=== PATIENT | male | born 1950 | race Two or more races ===

== ENCOUNTER → 2021-04-02 | Outpatient (CLI) | payer OTHER ==
[2021-04-02 10:22] LABS: Basophils # (auto) 0 10 ^3/uL (0-0.2); Basophils % (auto) 0.7 % (0.0-2.0); Eosinophils # (auto) 0.1 10 ^3/uL (0-0.8); Eosinophils % (auto) 2.2 % (0.0-7.0); Hematocrit 42.7 % (41.0-53.0); Hemoglobin 14.5 g/dL (13.5-17.5); Lymphocytes # (auto) 1.7 10 ^3/uL (0.4-5.4); Lymphocytes % (auto) 35.4 % (10.0-50.0); Mean Corpuscular Hemoglobin 32.4 pg (28.0-32.0); Mean Corpuscular Hgb Conc. 33.9 g/dL (32.0-36.0); Mean Corpuscular Volume 95.4 fL (80.0-100.0); Monocytes # (auto) 0.6 10 ^3/uL (0-1.3); Monocytes % (auto) 13.2 % (0.0-12.0); Neutrophils # (auto) 2.3 10 ^3/uL (1.6-8.6); Neutrophils % (auto) 48.5 % (37.0-80.0); Nucleated Red Blood Cells % 0.1 %; Red Blood Cells 4.47 10^6/uL (4.5-5.90); Red Cell Distribution Width 13.4 % (11.8-14.3); White Blood Cell 4.8 10^3/uL (4.4-10.8)
[2021-04-02 10:26] LABS: Urine Bacteria NONE SEEN /hpf (None Seen); Urine Blood Negative /uL (Negative); Urine Specific Gravity 1.015 (1.001-1.035); Urine WBC <1 /hpf (0 - 3)
[2021-04-02 11:34] LABS: Potassium 4.2 mmol/L (3.5-5.1)
[2021-04-02 11:51] LABS: Albumin 3.8 g/dL (3.4-5.0); BUN/Creatinine Ratio 15.5; Bilirubin, Total 0.8 mg/dL (0.2-1.0); Calcium 8.7 mg/dL (8.5-10.1); Total Protein 8.1 g/dL (6.4-8.2)
== END | disposition home or self-care (01) ==
LOC: LAB 09:43
PROVIDERS: ATTEND Internal Medicine
DX: Z12.11 Encounter for screening for malignant neoplasm of colon (principal); Z00.00 Encounter for general adult medical examination without abnormal findings; I10 Essential (primary) hypertension
CPT/HCPCS: 36415; 80053; 80061; 81001; 82043; 83036; 84153; 85025

== ENCOUNTER → 2021-04-08 | Outpatient (CLI) | payer OTHER | END | disposition home or self-care (01) | LOC: LAB 10:13 | PROVIDERS: ATTEND Internal Medicine | DX: Z12.11 Encounter for screening for malignant neoplasm of colon (principal); Z00.00 Encounter for general adult medical examination without abnormal findings; I10 Essential (primary) hypertension | CPT/HCPCS: 82270 ==